=== PATIENT | female | born 1990 | race Caucasian/White ===

== ENCOUNTER 2018-05-19 08:00 | Inpatient (IN) ==
[2018-05-19] MEDS ORDERED: Famotidine 20 MG/2 ML VIAL IVP PRN (08:10)
[2018-05-19] MEDS ORDERED: Lidocaine 1% 20 ML MDV INFILT PRN (08:10)
[2018-05-19] MEDS ORDERED: Naloxone 0.4 MG/ML INJ IVP PRN (08:10)
[2018-05-19] MEDS ORDERED: Metoclopramide 10 MG/2 ML VIAL IVP PRN (08:10)
[2018-05-19] MEDS ORDERED: *HR* Nalbuphine 10 MG/ML AMPUL IVP PRN (08:10)
[2018-05-19] MEDS ORDERED: Ringers Solution, Lactated 1,000 ML IVC SCH (08:15)
[2018-05-19] MEDS ORDERED: miSOPROStol 25 MCG TABLET PO ONE (08:30)
[2018-05-19 08:54] LABS: Basophils % 0.4 %; Eosinophils # 0.1 K/mcL (0.0-0.6); Hematocrit 35.4 % (35.3-44.9); Hemoglobin 12.1 g/dL (11.5-15.4); Immature Granulocytes % 0.4 % (0-4); Lymphocytes # 2.6 K/mcL (0.6-4.6); Lymphocytes % 23.2 %; Mean Corpuscular HGB Conc 34.2 g/dL (31.6-35.5); Mean Corpuscular Hemoglobin 29.7 pg (28.0-33.3); Mean Corpuscular Volume 86.8 fL (83.0-100.0); Mean Platelet Volume 11.2 fL (9.4-12.4); Monocytes # 0.7 K/mcL (0.0-1.3); Monocytes % 6.4 %; Neutrophils # 7.7 K/mcL (1.6-8.9); Platelet Count 159 K/mcL (140-400); Red Blood Count 4.08 M/mcL (3.82-4.97); Red Cell Distribution Width 13.4 % (11.5-14.5); Segmented Neutrophils % 68.6 %
--- NOTE | 2018-05-19 08:57 | OB/GYN History & Physical ---
Date of Encounter: 05/19/18 Time of Encounter: 08:54 Assessment and Plan (1) 39 weeks gestation of Current visit: Yes Status: Acute (2) Multiparity Current visit: Yes Status: Acute (3) Elective induction of labor planned Current visit: Yes Status: Acute Cytotec PO with EFM in anticipation of vaginal delivery History of Present Illness Chief complaint: induction of labor HPI: Ms. Andrews is a 27 year old female G 4 P 1-0-2-1 at 39 3/7 weeks admitted to labor and delivery for induction of labor due to term with favorable cervix. She states she has been having [place] contractions. She denies any leaking fluid or vaginal bleeding. She reports good movement. Past Med Surg Social Fam HX - Past Medical History Source: patient Medical history: no medical history - Past Surgical History Surgical History: appendectomy, other Additional surgical history: T&A; D&C - Social History Smoking Status: Never smoker Alcohol use: none Drug use: none Current living situation: Home - Independent - Family History Mother Name: Jesenia Herrera Age: 50 Living Status: Still Living Hx Family Medical Disorders: No Obstetrical History - Pregnancies : 4 Para: 1 Term: 1 : 0 Ab's: 2 Livin Medications and Allergies Vits96/Iron Fum/Folic [ Tablet] 1 each PO DAILY 05/19/18 [ History] 3 Allergy/AdvReac Type Severity Reaction Status Date / Time No Known Allergies Allergy Verified 12/30/17 21:13 Review of System OB All systems PM: reviewed and no additional remarkable complaints except as stated - Constitutional Constitutional ROS IM: no fatigue, no fever(s) - Menstruation Menstruation: amenorrhea Exam - Constitutional Constitutional: well developed, well nourished, no acute distress, average body habitus - HEENT HEENT: EOMI, Normocephaly, Mucus Membranes Moist - Lungs Respiratory exam: CTAB - Cardiovascular Cardiovascular exam: RRR - Abdomen Abdomen: Present: bowel sounds normal, gravid, non tender (Wilbur's to 8 lbs cephalic presentation) - Extremities Extremities exam: normal inspection - Cervix Dilation: 3 (exam 05/11/18) Effacement: 75 Station: -3 - Comments Comments: EFM category 1, baseline 120's. Results Result Diagrams: 05/19/18 08:30 All other labs normal. US - abdomen: report reviewed (from 04/16/18 [facility] with adequate fluid) - VTE Reasons for not Prescribing Prophylaxis: Treatment not Indicated - Low risk for VTE
[2018-05-19 09:52] LABS: Amphetamine Screen,Urine Negative ng/mL (Cutoff=1000); Barbiturate Screen,Urine Negative ng/mL (Cutoff=200); Benzodiazepines Screen,Urine Negative ng/mL (Cutoff=200); Cannabinoid Screen,Urine Negative ng/mL (Cutoff = 50); Cocaine Screen,Urine Negative ng/mL (Cutoff= 300); Opiate Screen,Urine Negative ng/mL (Cutoff=300); Phencyclidine Screen,Urine Negative ng/mL (Cutoff=25)
--- NOTE | 2018-05-19 10:54 | Anesthesia Evaluation PreOp ---
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 Any Significant HX Other Medical History: GERD Anesthesia History: No Prior Anesthetic Complications, Past Anesthesia (tonsil, neck mass, appy, d&c, deisy) : Yes Test: Positive Alcohol Use: none Drug use: none Medications and Allergies Vits96/Iron Fum/Folic [ Tablet] 1 each PO DAILY 05/19/18 [ History] 3 Allergy/AdvReac Type Severity Reaction Status Date / Time No Known Allergies Allergy Verified 12/30/17 21:13 - Meds/Allergy Pre-op Review Medications Reviewed: Yes Allergies Reviewed: Yes Beta Blockers on Current Med List: No Anesthesia Results - Labs 05/19/18 08:30 Anesthesia Exam 110/73 84 fht 131 Height: 5'4" NPO (# of Hours): 223 Pain Scale: 2 Pain Scale Used: Numeric (1 - 10) - HEENT Pupil (Motor): Pupils equal Mallampati: II Teeth: Normal Oral Opening: Greater than 3 - WAREHOUSE TRAFFIC SUPERVISOR LOC: Oriented [employer]AREHOUSE TRAFFIC SUPERVISOR Motor: Normal RUE, Normal LUE, Normal RLE, Normal LLE, Normal Face [employer]AREHOUSE TRAFFIC SUPERVISOR Sensory: Normal: RUE, LUE, RLE, LLE, Face - Cardiac Rhythm: Regular Murmur: None - Pulmonary Breath Sounds: bilateral Clear Respiratory Effort: Symmetrical Anesthesia Assess/Plan ASA Score: 2 Modified Alzada Scale for Level of Consciousness: Cooperative, oriented, and tranquil Anesthetic Plan: MAC Autologous Blood: No Monitoring Plan: Standard Monitors Recovery Plan: Other (risks discussed questions answered, consented)
[2018-05-19] MEDS ORDERED: *HR* FentaNYL (PF) 100 MCG/2 ML VIAL EP ONE (10:55)
[2018-05-19] MEDS ORDERED: *HR* Ropivacaine/PF 0.2% 20 ML VIAL EP ONE (10:55)
[2018-05-19] MEDS ORDERED: Epidural Premix (fent/bupiv) 110 ML EP SCH (11:00)
[2018-05-19] MEDS ORDERED: Lidocaine -MPF 2% 5 ML VIAL ONE (13:23)
[2018-05-19] MEDS ORDERED: *HR* FentaNYL (PF) 100 MCG/2 ML VIAL ONE (13:23)
[2018-05-19] MEDS ORDERED: *HR* ROPIVACAINE 1% PF 100 MG/10 ML VIAL ONE (13:24)
--- NOTE | 2018-05-19 13:53 | Anesthesia Procedures ---
Date of Encounter: 05/19/18 Time of Encounter: 13:51 Procedures: Anesthesia - Epidural/Spinal Patient ID/Chart reviewed: Yes Patient examined: Yes OB Eval: : 4 OB Eval: Hx Para: 1 OB Eval: Dilated at (cm): 6 OB Eval: Contractions: Non-stressed pattern Consent Obtained: Yes Supplemental Oxygen: None/Room Air Site Prep: Aseptic Technique, Sterile prep and drape, 0.5% Chlorhexidine/Alcohol Patient position: upright Local Anesthetic: Lidocaine 1% Amount of Local Anesthetic used: 3 Touhy Needle Gauge: 18 Touhy Needle Depth (cm): 8 Catheter Depth at Skin (cm): 20 Test Dose (1.5% Lido + Epi): Volume given (mls): 3 Test Dose Result: Negative Loading Dose: Fentanyl (mcg): 100 Loading Dose: Other: rop 0.2% 10 cc Loading Dose Administered: Thru Touhy Needle Infusion Med: 0.125% Bupivacaine w/ 2 mcg/ml Fentanyl Infusion Rate (mls/hr): 15 (pces 5cc q30") Catheter Secured in Place: Tegaderm Interspace Used: L2-L3 Loss of Resistance (PHILIP): Yes Blood: No CSF: No Paresthesia: No Procedure: aseptic, katrina well, VSS, effective Vitals + FHT's: 112/78 76 16 fht 133
[2018-05-19] MEDS ORDERED: Ondansetron 4 MG/2 ML VIAL IVP PRN (14:59)
--- NOTE | 2018-05-19 15:05 | OB Labor Progress Note ---
Date of Encounter: 05/19/18 Time of Encounter: 15:01 Labor Progress Note - Subjective Subjective: Patient doing well Discussed POC with patient. Patient denies any questions or concerns. Patient has epidural and denies any pain at this time. - Cervix Cervix: 5/80/0 - Heart Tones Heart Tones: 115 bpm moderate variability +15x15 accels no decels noted. Cat. 1 tracing - [place]: 2-4 min apart - Interventions Interventions: SVE, AROM moderate amount of clear fluid. Patient tolerated well. - Plan Plan: Continue labor management. anticipate
[2018-05-19] MEDS ORDERED: Oxytocin 20 units/ LR 1000 mL 20 UNIT/1,000 ML BAG IVC ONE (16:06)
[2018-05-19] MEDS ORDERED: Oxytocin 20 units/ LR 1000 mL 20 UNIT/1,000 ML BAG IVC SCH (16:15)
[2018-05-19] MEDS ORDERED: Acetaminophen 325 MG TABLET PO PRN (17:56)
--- NOTE | 2018-05-20 00:27 | OB/GYN Procedure Note ---
Delivery - Delivery Date: 05/20/18 Provider: Angely Trinh Intrapartum events: none Delivery induction: AROM, oxytocin, misoprostol Delivery monitor: external FHT, external uterine Anesthesia: local, epidural Quantitated Blood Loss: 500 - Infant (s) Infant A Infant Delivery Date: 05/20/18 Delivery Time: 12:05 Presentation: vertex Position: OA Route of delivery: Gender: Male Viability: Viable Pounds: 7 Ounces: 12 Weight Gram: 3.53 kg at 1 minute: 8 at 5 mins: 9 Shoulder Dystocia: not encountered Placenta: spontaneous Cord: 3 umbilical vessels - Repair Episiotomy: none Laceration Description: Perineal - 2nd Degree - Complications Delivery complications: none Delivery comments: Called to room with patient complete and +2 station. Under maternal effort she delivered a viable male weighing 7 lbs. 12 oz. and Apgars 8 and 9 at one and 5 minutes respectively over second-degree perineal laceration. Following delivery of the head there is no nuchal cord or shoulder dystocia encountered. The remainder of the body delivered with maternal effort and the was placed on mom's abdomen. began to cry cord was allowed to cease pulsations. Cord was double clamped and cut with assistance from the father. Placenta delivered spontaneously, complete, and intact with a three- vessel cord. Uterine atony was encountered resolved with Pitocin bolus and fundal massage. The second-degree perineal laceration was repaired using 2-0 and 3-0 Vicryl in standard fashion. Sponge and needle counts were correct in the procedure. Mother and are recovering in the LDR in stable condition. - Disposition Mom disposition: stable in LDR [place] disposition: stable in LDR
[2018-05-20] MEDS ORDERED: Oxytocin 20 units/ LR 1000 mL 20 UNIT/1,000 ML BAG IVC ONE (00:28)
[2018-05-20] MEDS ORDERED: Acetaminophen 325 MG TABLET PO PRN (00:28)
[2018-05-20] MEDS ORDERED: Ibuprofen 600 MG TABLET PO ONE (00:28)
[2018-05-20] MEDS ORDERED: Oxytocin 20 units/ LR 1000 mL 20 UNIT/1,000 ML BAG IVC SCH (00:30)
[2018-05-20] MEDS: Ibuprofen 600 MG TABLET PO PRN ×3 (05:58→18:47)
[2018-05-20] MEDS: Prenatal Vit/FA 1 EACH TABLET PO SCH (10:25)
[2018-05-20 20:49] VITALS: BP 95/63
[2018-05-21] MEDS: Ibuprofen 600 MG TABLET PO PRN ×3 (01:02→13:13)
[2018-05-21] MEDS: Prenatal Vit/FA 1 EACH TABLET PO SCH (08:32)
--- NOTE | 2018-05-21 10:08 | Discharge Summary ---
Date of Encounter: 05/21/18 Time of Encounter: 10:10 - Discharge Diagnosis (1) Status post vaginal delivery Priority: Primary Status: Acute Comments: Patient stable for discharge two days s/p vaginal delivery of liveborn male Normal course without complication, patient feeding and eating well, minimal bleeding Return precautions given including headache, chest pain, increased vaginal bleeding, visual changes, depressed mood - Discharge Medications Prescriptions: Ibuprofen [Motrin] 600 mg PO Q6HR PRN 14 Days #56 tablet PRN Reason: Cramping Docusate [Colace] 100 mg PO BID 14 Days #28 capsule Home Medications: Vits96/Iron Fum/Folic [ Tablet] 1 each PO DAILY 05/19/18 [ History] Docusate [Colace] 100 mg PO BID 14 Days #28 capsule 05/21/18 [Rx] Ibuprofen [Motrin] 600 mg PO Q6HR PRN 14 Days #56 tablet 05/21/18 [Rx] Vit/FA 1 each PO DAILY tablet 05/21/18 [Rx] Allergies/Adverse Reactions: 3 Allergy/AdvReac Type Severity Reaction Status Date / Time No Known Allergies Allergy Verified 12/30/17 21:13 Data Procedures and tests throughout hospitalization: Laboratory Tests 05/19/18 05/19/18 08:30 08:30 WBC 11.2 H RBC 4.08 Hgb 12.1 Hct 35.4 MCV 86.8 MCH 29.7 MCHC 34.2 RDW 13.4 Plt Count 159 MPV 11.2 Immature Gran % 0.4 Seg Neutrophils % 68.6 Lymphocytes % 23.2 Monocytes % 6.4 Eosinophils % 1.0 Basophils % 0.4 Neutrophils # 7.7 Lymphocytes # 2.6 Monocytes # 0.7 Eosinophils # 0.1 Basophils # 0.0 Urine Opiates Screen Negative Ur Barbiturates Screen Negative Ur Phencyclidine Scrn Negative Ur Amphetamines Screen Negative U Benzodiazepines Scrn Negative Urine Cocaine Screen Negative U Marijuana (THC) Screen Negative Ur Drug Screen Interp See Below - Additional Comments Delivery - Delivery Date: 05/20/18 Provider: Angely Trinh Intrapartum events: none Delivery induction: AROM, oxytocin, misoprostol Delivery monitor: external FHT, external uterine Anesthesia: local, epidural Quantitated Blood Loss: 500 - (s) A Delivery Date: 05/20/18 Delivery Time: 12:05 Presentation: vertex Position: OA Route of delivery: Gender: Male Viability: Viable Pounds: 7 Ounces: 12 Weight Gram: 3.53 kg at 1 minute: 8 at 5 mins: 9 Shoulder Dystocia: not encountered Placenta: spontaneous Cord: 3 umbilical vessels - Repair Episiotomy: none Laceration Description: Perineal - 2nd Degree - Complications Delivery complications: none Delivery comments: Called to room with patient complete and +2 station. Under maternal effort she delivered a viable male weighing 7 lbs. 12 oz. and Apgars 8 and 9 at one and 5 minutes respectively over second-degree perineal laceration. Following delivery of the head there is no nuchal cord or shoulder dystocia encountered. The remainder of the body delivered with maternal effort and the was placed on mom's abdomen. began to cry cord was allowed to cease pulsations. Cord was double clamped and cut with assistance from the father. Placenta delivered spontaneously, complete, and intact with a three- vessel cord. Uterine atony was encountered resolved with Pitocin bolus and fundal massage. The second-degree perineal laceration was repaired using 2-0 and 3-0 Vicryl in standard fashion. Sponge and needle counts were correct in the procedure. Mother and infant are recovering in the LDR in stable condition. - Disposition Mom disposition: stable in [place] disposition: stable in Date of admission: 05/19/18 08:04 Primary care physician: Germania Zaragoza Consults: 05/20/18 00:28 Consult to Risk Control Analyst [CONS] Routine Comment: Vaginal delivery, consult needed Discharging clinician: Bebe Regan Anticipated date of discharge: 05/21/18 - Patient Status Disposition: Home, Self-Care Condition: Good Functional capacity at discharge: independent ambulation Overall status at discharge: patient is progressing back to baseline - Discharge Instructions Follow Up With: Germania Zaragoza, [employer] [Primary Care Provider] - Angely Trinh DO [Partnered Physician] - Additional Instructions: Follow up with Dr. Trinh for recheck on 06/18/18 Take the ibuprofen 600mg every 6 hours as needed for pain and colace for stool softening Nothing vaginally until you are seen in the office Return should you develop any significant bleeding, headache not resolving, visual changes, chest pain, shortness of breath, or any other symptoms worrisome to you - Diet and Activity Activity: increase activity as tolerated Diet: advance to your usual diet Hospital Course GRADES 1 THROUGH 6 TEACHER Time Attestation: Total time spent providing and/or coordinating discharge services: Exam - Constitutional Vitals: Temp Pulse Resp BP Pulse Ox 98.1 F 75 14 95/63 98 05/21/18 07:26 05/21/18 07:26 05/21/18 07:26 05/21/18 07:05/21/18 07:26 General appearance IM: A&O X 3, pleasant, no acute distress, answers questions appropriately - Respiratory Respiratory exam: Present: CTAB. Absent: chest wall tenderness, respiratory distress, wheezes - Cardiovascular Cardiovascular exam IM: Present: RRR, +S1, +S2. Absent: systolic murmur - GI/Abdominal GI/Abdominal exam IM: normal bowel sounds - Uterine Tone: Firm Uterus Position: 2 Fingers Below Umbilicus - Extremities Exam Extremities exam IM: Absent: calf tenderness, pedal edema - Neurological Exam Neurological exam: alert, oriented X3 - Psychiatric Additional comments: Patient states mood is "good" - VTE Reasons for not Prescribing Prophylaxis: Treatment not Indicated - Low risk for VTE
[2018-05-21] MEDS ORDERED: Benzocaine/Menthol 56 GM AEROSOL SPRAY TP PRN (10:47)
== END 2018-05-21 18:23 | disposition home or self-care (01) | DRG 775 ==
LOC: 1NENULAB 08:04 → 1NENUOBS 05-20 03:49
PROVIDERS: ADMIT Obstetrics & Gynecology; ATTEND Obstetrics & Gynecology